=== PATIENT | male | born 1970 ===

== ENCOUNTER 2023-05-24 08:21 | Outpatient (AMB) | payer OTHER, SELFPAY ==
[2023-05-24 08:27] VITALS: BP 124/86; PULSE 63; RESP 13; TEMP 36.5; O2SAT 99; BMI 33.7
--- NOTE | 2023-05-24 08:27 | MHC.OFFWIV ---
Intake Vital Signs 05/24/23 08:27 Height 5 ft 11 in Weight 242 lb BMI 33.7 BP 124/86 Blood Pressure Location Rt brachial Position Sitting Respiration 13 Pulse 63 Pulse Source Pulse Oximeter Temp 97.7 F Temp Source Temporal Artery Scan Pulse Oximetry (%) 99 Oxygen Delivery Method Room Air Intake Visit Reasons: Sore throat Intake Note: Patient has been taking OTC medication to help symptoms, symptoms started on saturday. Patient Tobacco Use Status: Former Tobacco user [employer] Required: No Accompanied by: Self / Same As Patient Allergies No Known Allergies Allergy (Verified 05/24/23 09:10) Medication List - [facility] No Known Home Meds Do you need a note to return to daycare/school/sports/work: No HPI HPI Comments History of Present Illness Details Here today w sore throat started on Saturday yesterday cough w productive sputum green yellow denies fever, chills, headache, ear pain. Using nyquil and other otc meds w/o relief. Not UTD on vaccines [facility] Social History Patient Tobacco Use Status: Former Tobacco user Review of Systems Const All systems reviewed & are unremarkable except as noted in HPI and below Physical Exam Vital Signs: Last Vital Signs Temp 97.7 F 05/24/23 08:27 Pulse 63 05/24/23 08:27 Resp 13 05/24/23 08:27 BP 124/86 05/24/23 08:27 Pulse Ox 99 05/24/23 08:27 Oxygen Delivery Method Room Air 05/24/23 08:27 BMI result Body Mass Index 33.7 Const Other: Awake alert NAD Sclera and conjunctiva clear bilat TM intact bilat, mild erythema on R MMM, pharynx WNL RRR LS CTAB Assessment & Plan Assessment & Plan (1) RSV (respiratory syncytial virus infection): Code(s): B33.8 - Other specified viral diseases (2) Flu-like symptoms: Code(s): R68.89 - Other general symptoms and signs Plan: Viral swab obtained today and positive for RSV. Supportive care encouraged RSV immunizations are recommended only for these groups: Adults ages 60 and older: Two RSV vaccines (Arexvy by [employer] and Abrysvo by [employer]) have been licensed by FDA and recommended by CDC for adults ages 60 and older, using shared clinical decision-making. women: One RSV vaccine (Abrysvo by [employer]) has been licensed and recommended during weeks 32 through 36 of to protect infants. Infants and some young children: An RSV preventive antibody has been licensed and recommended for infants and some young children. Respiratory syncytial virus (RSV) is recognized as one of the most common causes of childhood illness and is the most common cause of hospitalization in infants. It causes annual outbreaks of respiratory illnesses in all age groups. In most regions of the [place], RSV season starts in the fall and peaks in the winter, but the timing and severity of RSV season in a given community can vary from year to year. Healthcare providers should consider RSV in the differential diagnosis of patients with respiratory illness, particularly during the RSV season. For more information about recommended infection prevention and control practices in healthcare settings, see CDC?s 2007 Guideline for Isolation Precautions: Preventing Transmission of Infectious Agents in Healthcare Settings. CDC recommends RSV vaccines to protect adults ages 60 and older from severe RSV, using shared clinical decision-making. To protect infants from severe RSV, CDC recommends an RSV vaccine for people who are 32?36 weeks or a monoclonal antibody given to the baby after . A healthcare provider?s recommendation is one of the most important factors influencing a patient?s choice to accept a new prevention product or vaccine. Vaccines for Older Adults New RSV vaccines are available for adults 60 and older. CDC recommends that adults 60 and older may receive a single dose of RSV vaccine, using shared clinical decision-making. The decision to vaccinate an individual patient should be based on a discussion between the healthcare provider and the patient. It may be informed by the patient?s risk of severe RSV disease and their characteristics, values, and preferences; the healthcare provider?s clinical discretion; and the characteristics of the vaccine. Healthcare providers should be aware of underlying conditions that may increase the risk of severe RSV illness, and who might be most likely to benefit from these new vaccines. RSV vaccine is recommended as a single dose. Studies are ongoing to determine whether (and if so, when) revaccination may be needed over time. Immunizations to Protect Infants There are two safe and effective immunizations to prevent RSV lower respiratory tract infection in infants. Either a maternal vaccination or a monoclonal antibody is recommended, but administration of both is not needed for most infants. Maternal Vaccines for People A new RSV vaccine is recommended for people who are 32?36 weeks with seasonal administration during December?April in most of the continental [place]. In jurisdictions with seasonality that differs from most of the [facility] [place] (e.g., [place], jurisdictions with tropical climates), providers should follow state, local, or territorial guidance on timing of administration. This vaccine provides protection against severe RSV illness to the recipient?s baby for up to 6 months of age. However, the ?s protection will wane over time. Healthcare providers of people should provide information on both maternal vaccines and monoclonal antibody products and consider patient preferences when determining whether to vaccinate the patient or to not vaccinate and rely on administration of nirsevimab to the infant after . Monoclonal Antibody Products for Infants and Young Children Nirsevimab (Beyfortus) is a monoclonal antibody product that can protect infants and some young children from severe RSV disease. It is recommended for: Infants under 8 months old born during ? or entering ? their first RSV season (typically fall through spring) if their mother did not receive an RSV vaccine, it is unknown if their mother received an RSV vaccine, or the mother received a vaccine but the was born <14 days after vaccination Nirsevimab can be considered in rare circumstances even though the mother received an RSV vaccine when, per the clinical judgment of the healthcare provider, the potential incremental benefit of administration is warranted: people who may not mount an adequate immune response to vaccination (e.g., people with immunocompromising conditions) or have conditions associated with reduced transplacental antibody transfer (e.g., people living with HIV infection) Infants who have had cardiopulmonary bypass leading to loss of RSV antibodies Infants with substantially increased risk for severe RSV disease (e.g., hemodynamically significant congenital heart disease, intensive care admission, and requiring oxygen at discharge) Some children between the ages of 8 and 19 months who are at increased risk of severe RSV disease before their second RSV season. These include: Children who have chronic lung disease of prematurity who required medical support (chronic corticosteroid therapy, diuretic therapy, or supplemental oxygen) any time during the 6-month period before the start of the second RSV season Children with severe immunocompromise Children with cystic fibrosis who have severe disease and children Nirsevimab is administered by intramuscular injection. It is long-acting, providing protection for at least 5 months (the average length of one season), and only one dose is recommended for an RSV season. However, immune protection will wane over time. Another monoclonal antibody, Palivizumab (Synagis), is recommended by the [place] [employer] (AAP) for administration to infants and young children who are at increased risk of severe RSV disease based on gestational age and certain underlying medical conditions. It is given in monthly intramuscular injections during RSV season. AAP has provided considerations for the 2022?2023 RSV season with regard to palivizumab versus nirsevimab administration for high-risk infants during the same RSV season. Clinical Description and Diagnosis In Infants and Young Children RSV infection can cause a variety of respiratory illnesses and symptoms in infants and young children. It most commonly causes a cold-like illness but can also cause lower respiratory infections like bronchiolitis and pneumonia. Two to three percent of infants with RSV infection may need to be hospitalized. Severe disease most commonly occurs in very young infants. Additionally, children with any of the following underlying conditions are considered at increased risk: Premature infants Infants, especially those 6 months and younger Children younger than 2 years old with chronic lung disease or congenital heart disease Children with suppressed or weakened immune systems Children who have neuromuscular disorders or a congenital anomaly, including those who have difficulty swallowing or clearing mucus secretions Children with severe cystic fibrosis Infants and young children with RSV infection may have rhinorrhea and a decrease in appetite before any other symptoms appear. Cough usually develops 1 to 3 days later. Soon after the cough develops, sneezing, fever, and wheezing may occur. Symptoms in very young infants can include irritability, decreased activity, and/or apnea. Most otherwise healthy infants and young children who are infected with RSV do not need hospitalization. Those who are hospitalized may require oxygen, rehydration, and/or mechanical ventilation. Most improve with supportive care and are discharged in a few days. In Older Adults and Adults with Chronic Medical Conditions Adults who get infected with RSV usually have mild or no symptoms. Symptoms are usually consistent with an upper respiratory tract infection, which can include rhinorrhea, pharyngitis, cough, headache, fatigue, and fever. Disease usually lasts less than 5 days. Some adults, however, may have more severe symptoms consistent with a lower respiratory tract infection, such as pneumonia. Epidemiologic evidence indicates that people 60 and older who are at highest risk of severe RSV disease include those with any of the following chronic conditions: Lung disease (such as chronic obstructive pulmonary disease [COPD] and asthma) Chronic cardiovascular diseases (such as congestive heart failure and coronary artery disease) Diabetes mellitus Neurologic conditions Kidney disorders Liver disorders Hematologic disorders Immune compromise Other underlying conditions that a healthcare provider determines might increase the risk for severe respiratory disease Other underlying factors that the provider determines might increase the risk of severe RSV-associated respiratory illness may include the following: Frailty Advanced age Residence in a jail or other long-term care facility Other underlying factors that a healthcare provider determines might increase the risk for severe respiratory disease RSV can sometimes also lead to exacerbation of serious conditions such as: Asthma Chronic obstructive pulmonary disease (COPD) Congestive heart failure Clinical Laboratory Testing Clinical symptoms of RSV are nonspecific and can overlap with other viral respiratory infections, as well as some bacterial infections. Several types of laboratory tests are available for confirming RSV infection. These tests may be performed on upper and lower respiratory specimens. The most commonly used types of RSV clinical laboratory tests are Real-time reverse director outpatient services-polymerase chain reaction (dairy processing supervisor-PCR), which is more sensitive than culture and antigen testing Antigen testing, which is sensitive in children but less sensitive in adults Less commonly used tests include: Viral culture Serology, which is usually only used for research and surveillance studies Some tests can differentiate between RSV subtypes (A and B), but the clinical significance of these subtypes is unclear. Consult your laboratorian for information on what type of respiratory specimen is most appropriate to use. RSV Testing For Infants and Young Children Both dairy processing supervisor-PCR and antigen detection tests are effective methods for diagnosing RSV infection in infants and young children. The sensitivity of RSV antigen detection tests generally ranges from 80% to 90% in this age group. Healthcare providers should consult experienced laboratorians for more information on interpretation of results. RSV Testing For Older Children, Adolescents, and Adults Healthcare providers should use highly sensitive dairy processing supervisor-PCR assays when testing older children and adults for RSV. dairy processing supervisor-PCR assays are now commercially available for RSV. The sensitivity of these assays often exceeds the sensitivity of virus isolation and antigen detection methods. Antigen tests are not sensitive for older children and adults because they may have lower viral loads in their respiratory specimens. Healthcare providers should consult experienced laboratorians for more information on interpretation of results. Plan This note is constructed using voice recognition software. While every effort has been made to ensure accuracy in director outpatient services, still errors may have been included Sometimes, these errors may affect the content or meaning of the given sentence . Total time spent caring for the patient today was 30 minutes. This includes time spent before the visit reviewing the chart, time spent during the visit, and time spent after the visit on documentation Orders: Orders SARS-CoV2/FLU/RSV Today R68.89 - Other general symptoms and signs Coding Level of Care Code Est Pt Level 4 (45163) Diagnoses RSV (respiratory syncytial virus infection) B33.8 Flu-like symptoms R68.89
== END 2023-05-24 09:18 | disposition home or self-care (01) ==
PROVIDERS: Visit Provider Nurse Practitioner Family
DX: B33.8 Other specified viral diseases (principal); R68.89 Other general symptoms and signs
CPT/HCPCS: 99214

== ENCOUNTER 2023-05-24 11:51 | Outpatient (REF) | payer OTHER, SELFPAY ==
[2023-05-24 13:01] LABS: Influenza A PCR NEGATIVE (Negative); Influenza B PCR NEGATIVE (Negative); Resp Syncy Virus RNA Qual PCR POSITIVE (Negative); SARS COV2 PCR INHOUSE NEGATIVE (Negative)
== END 2023-05-24 11:52 | disposition home or self-care (01) ==
LOC: HO.LNP 11:51
PROVIDERS: Visit Provider Nurse Practitioner Family
DX: R68.89 Other general symptoms and signs (principal); Z11.52 Encounter for screening for COVID-19; Z20.828 Contact with and (suspected) exposure to other viral communicable diseases
CPT/HCPCS: 0241U